=== PATIENT | female | born 1985 | race Caucasian/White ===

== ENCOUNTER 2017-02-02 17:42 | Emergency (ER) | payer BC, OTHER ==
[2017-02-02 18:08] VITALS: BP 134/55
[2017-02-02] MEDS ORDERED: Ondansetron 4 MG/2 ML SDV IVPUSH ONE (18:39)
[2017-02-02] MEDS ORDERED: HYDROmorphone 1 MG/ML Syringe IVPUSH ONE (18:39)
--- NOTE | 2017-02-02 18:50 | EDM.PDOC ---
ED HPI GI/ABDOMINAL - General Chief Complaint: Abdominal Pain Stated Complaint: ABDOMINAL PAIN Time Seen by Provider: 02/02/17 18:00 Source of Information: Reports: Patient History Limitations: Reports: No limitations - History of Present Illness INITIAL COMMENTS - FREE TEXT/NARRATIVE: 31-year-old female presents emergency room with severe abdominal pain. Patient had a episode of vomiting last evening after eating and she felt a tearing in her right mid abdomen. Since then she's felt a fullness and severe pain and discomfort over the right abdomen. She has pain with any movement. She's noticed sudden nausea today but has not had a reoccurrence of vomiting. She was recently seen in [place] on November 30 for small bowel obstruction. She is recently status post gastric bypass which she had done in [facility] on December 19, 2016. She reports 30 pound weight loss. She was [id number] diabetic and on that form in his currently off her diabetes medication. He had a bowel movement yesterday. She's concerned that she may have incarcerated hernia because she's noticed increased fullness and tenderness over the area of where her portal was from surgery on the right midabdomen. She denies any fever or chills. He denies shortness of breath or chest pain. Denies any pain or bleeding with urination. She feels her pain is a 6/10. It is not improving. Timing/Duration: Reports: Hour(s):, Constant Location: RLQ Quality: Reports: fullness, stabbing Severity: moderate Improves with: Reports: other (lying in a position) Worsens with: Reports: sitting up, other (and walking) Context: Reports: recent surgery (*gastric bypass surgery in [facility]) Associated Symptoms (-Female): Reports: loss of appetite, nausea/vomiting. 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: Other (see below) Other OB/BYN History: 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 Endocrine/Metabolic History: Reports: Diabetes, type II, Obesity/BMI 30+ - Infectious Disease History Infectious Disease History: Reports: Chicken pox - Past Surgical History HEENT Surgical History: Reports: Tonsillectomy GI Surgical History: Reports: Bariatric procedure, Cholecystectomy, Colonoscopy , Other (see below) Other GI Surgeries/Procedures: laparotomy Female Surgical History: Reports: section Social & Family History - Family History Cardiac: Reports: Hypertension, Other (see below) Other Cardiac Family History: Dad from cardiac arrest at age 61 Endocrine/Metabolic: Reports: Diabetes, type II - Tobacco Use Smoking Status *Q: Former Smoker Used Tobacco, but Quit: Yes Month Tobacco Last Used: January Second Hand Smoke Exposure: No - Caffeine Use Caffeine Use: Reports: None - Alcohol Use Days Per Week of Alcohol Use: 1 Number of Drinks Per Day: 6 Total Drinks Per Week: 6 - Recreational Drug Use Recreational Drug Use: No ED ROS GENERAL - Review of Systems Review Of Systems: See Below Constitutional: Denies: fever, chills, diaphoresis HEENT: Reports: No symptoms Respiratory: Reports: No Symptoms Cardiovascular: Reports: No symptoms Endocrine: Reports: high glucose GI/Abdominal: Reports: Abdominal pain, Anorexia, Decreased appetite, Distension , Flatus, Nausea, Vomiting. Denies: Bloody stool, Constipation, Diarrhea, Hematemesis : Denies: dysuria, flank pain Musculoskeletal: Denies: neck pain, shoulder pain, back pain Skin: Denies: diaphoresis, bruising Neurological: Reports: No Symptoms Psychiatric: Reports: No symptoms Hematologic/Lymphatic: Reports: no symptoms Immunologic: Reports: no symptoms ED EXAM, GI/ABD - Physical Exam Exam: See Below Exam Limited By: No limitations General Appearance: alert, WD/WN, mild distress Nose: normal inspection, no blood Throat/Mouth: Normal voice, No airway compromise Head: atraumatic, normocephalic Neck: normal inspection Respiratory/Chest: no respiratory distress, lungs clear, normal breath sounds Cardiovascular: normal peripheral pulses, regular rate, rhythm, no murmur GI/Abdominal: tenderness, guarding, mass (fullness over the right abdominal portal site. As his area of tenderness.) Back Exam: normal inspection, full range of motion. No: CVA tenderness (L), CVA tenderness (R) Extremities: normal inspection Neurological: alert, oriented, no motor/sensory deficits Psychiatric: normal affect, normal mood Skin Exam: Warm, Dry, Intact, Normal color, No rash Lymphatic: no adenopathy Course - Vital Signs Last Recorded V/S: Last Vital Signs Temp 99.9 F 02/02/17 18:04 Pulse 85 02/02/17 18:04 Resp 20 02/02/17 18:04 BP 134/55 L 02/02/17 18:04 Pulse Ox 96 02/02/17 18:04 - Orders/Labs/Meds Orders: Active Orders 24 hr Category Date Time Status Abdomen Pelvis w Cont [CT] Stat Exams 02/02/17 18:35 Taken Sodium Chloride 0.9% [Normal Saline] Med 02/02/17 19:45 Active 50 ml FLUSH ASDIRECTED Sodium Chloride 0.9% [Normal Saline] 1,000 ml Med 02/02/17 19:30 Active IV .BOLUS Medication Orders Sodium Chloride (Normal Saline) 1,000 mls @ 999 mls/hr IV .BOLUS ONE Stop: 02/02/17 20:30 Last Admin: 02/02/17 19:33 Dose: 999 mls/hr Sodium Chloride (Normal Saline) 50 ml FLUSH ASDIRECTED [facility] Labs: Laboratory Tests 02/02/17 02/02/17 02/02/17 Range/Units 18:45 18:45 19:40 WBC 8.6 (5.0-10.0) 10^3/uL RBC 4.56 (3.80-5.50) 10^6/uL Hgb 13.0 (12.0-16.0) g/dL Hct 38.3 (37.0-47.0) % MCV 83.9 (82.0-92.0) fL MCH 28.5 (27.0-31.0) pg MCHC 34.0 (32.0-36.0) g/dL RDW 13.9 (11.5-14.5) % Plt Count 220 (150-300) 10^3/uL MPV 9.2 (7.4-10.4) fL Neut % (Auto) 80.0 H (50.0-70.0) % Lymph % (Auto) 13.4 L (20.0-40.0) % [place] % (Auto) 4.5 (2.0-8.0) % Eos % (Auto) 2.0 (1.0-3.0) % Baso % (Auto) 0.1 (0.0-1.0) % Neut # (Auto) 6.8 (2.5-7.0) 10^3/uL Lymph # (Auto) 1.2 (1.0-4.0) 10^3/uL [place] # (Auto) 0.4 (0.1-0.8) 10^3/uL Eos # (Auto) 0.2 (0.1-0.3) 10^3/uL Baso # (Auto) 0.0 (0.0-0.1) 10^3/uL Sodium 139 (136-145) mmol/L Potassium 3.8 (3.3-5.3) mmol/L Chloride 104 (98-115) mmol/L Carbon Dioxide 26.6 (21.0-32.0) mmol/L BUN 8 (6-25) mg/dL Creatinine 0.68 (0.51-1.17) mg/dL Est Cr Clr Drug Dosing 96.55 mL/min Estimated GFR (MDRD) > 60 mL/min Glucose 97 (70-110) mg/dL Calcium 8.9 (8.7-10.3) mg/dL AST 18 (15-37) U/L ALT 23 (12-78) U/L Amylase 38 (25-125) U/L Lipase 80 (73-393) U/L Specimen Type Urincc Urine Color Dark yellow H (YELLOW) Urine Appearance Clear (CLEAR) Urine pH 5.5 (5.0-9.0) Ur Specific [place] >= 1.030 (1.005-1.030) Urine Protein Trace H (NEGATIVE) mg/dL Urine Glucose (UA) Negative (NEGATIVE) mg/dL Urine Ketones Trace H (NEGATIVE) mg/dL Urine Occult Blood Negative (NEGATIVE) Urine Nitrite Negative (NEGATIVE) Urine Bilirubin Small H (NEGATIVE) Urine Urobilinogen 1.0 (0.2-1.0) E.U./dL Ur Leukocyte Esterase Negative (NEGATIVE) Urine RBC Not seen /HPF Urine WBC 0-5 /HPF Ur Epithelial Cells Moderate H /LPF Other Crystals Many /HPF Urine Bacteria Rare (NONE TO FEW) /HPF Urine Mucus Few H (NEGATIVE) /LPF Meds: Medications Generic Name Dose Route Start Last Admin Trade Name Neel PRN Reason Stop Dose Admin Sodium Chloride 1,000 mls @ 999 mls/hr 02/02/17 19:30 02/02/17 19:33 Normal Saline IV 02/02/17 20:30 999 mls/hr .BOLUS ONE Administration Sodium Chloride 50 ml 02/02/17 19:45 Normal Saline FLUSH ASDIRECTED TRAVON Discontinued Medications Generic Name Dose Route Start Last Admin Trade Name Neel PRN Reason Stop Dose Admin Hydromorphone HCl 1 mg 02/02/17 18:39 02/02/17 18:50 Dilaudid IVPUSH 02/02/17 18:40 1 mg ONETIME ONE Administration Iopamidol 75 ml 02/02/17 19:36 Isovue-300 (61%) IV 02/02/17 19:37 ONETIME ONE Ondansetron HCl 4 mg 02/02/17 18:39 02/02/17 18:50 Zofran IVPUSH 02/02/17 18:40 4 mg ONETIME ONE Administration Departure - Departure Time of Disposition: 20:19 Disposition: Still A Patient 30 Condition: good Clinical Impression: Abdominal pain Qualifiers: Abdominal location: right lower quadrant Qualified Code(s): R10.31 - Right lower quadrant pain Forms: ED Department Discharge - My Orders Last 24 Hours: My Active Orders 02/02/17 18:35 Abdomen Pelvis w Cont [CT] Stat 02/02/17 19:30 Sodium Chloride 0.9% [Normal Saline] 1,000 ml IV .BOLUS 02/02/17 19:45 Sodium Chloride 0.9% [Normal Saline] 50 ml FLUSH ASDIRECTED - Assessment/Plan Last 24 Hours: My Active Orders 02/02/17 18:35 Abdomen Pelvis w Cont [CT] Stat 02/02/17 19:30 Sodium Chloride 0.9% [Normal Saline] 1,000 ml IV .BOLUS 02/02/17 19:45 Sodium Chloride 0.9% [Normal Saline] 50 ml FLUSH ASDIRECTED
[2017-02-02] MEDS ORDERED: Sodium Chloride 0.9% 1,000 ML IV ONE (19:30)
[2017-02-02] MEDS ORDERED: Iopamidol 612 MG/ML 75 ML Bottle IV ONE (19:36)
[2017-02-02 19:40] LABS: CHLORIDE,CL 104 mmol/L (98-115); SODIUM,NA 139 mmol/L (136-145)
[2017-02-02] MEDS ORDERED: Sodium Chloride 0.9% 50 ML SDV FLUSH SCH (19:45)
[2017-02-03] MEDS ORDERED: Sodium Chloride 0.9% 50 ML SDV FLUSH ONE (13:13)
== END 2017-02-02 21:10 | disposition home or self-care (01) ==
LOC: KA.ED 17:42
DX: R10.31 Right lower quadrant pain (principal); E66.9 Obesity, unspecified; E11.9 Type 2 diabetes mellitus without complications; Z87.891 Personal history of nicotine dependence
CPT/HCPCS: 74177; 80048; 81001; 82150; 83690; 84450; 84460; 85025; 96361; 96374; 96375; 99284; J1170; J2405; J7030; Q9967

== ENCOUNTER 2017-07-22 05:20 | Emergency (ER) | payer BC, OTHER ==
[2017-07-22] MEDS ORDERED: HYDROmorphone 1 MG/ML Syringe IVPUSH ONE (05:30)
[2017-07-22 05:58] VITALS: BP 127/74
--- NOTE | 2017-07-22 06:19 | EDM.PDOC ---
ED HPI GENERAL MEDICAL PROBLEM - General Chief Complaint: Abdominal Pain Stated Complaint: abd pain Time Seen by Provider: 07/22/17 05:58 Source of Information: Reports: Patient History Limitations: Reports: No Limitations - History of Present Illness INITIAL COMMENTS - FREE TEXT/NARRATIVE: Patient presents with abdominal pain 8-910 that started at 0200, an hour after eating two pieces of toast and popcorn when she got home from work. She tried to make herself vomit thinking the food was stuck; she had a gastric bypass 7 months ago. The pain let up somewhat for awhile and then returned at 0400. She denies N/V, diarrhea or constipation. Last bowel movement was just a couple hours ago and she has been passing gas currently. One month after her gastric bypass she did have a small bowel obstruction that resolved itself after a couple days in the hospital. She has had abdominal hernias repaired 2 months ago and a lap maximilian two years ago. Left Middle Abdominal Pain Score (Numeric/FACES): 10 - Related Data Allergies Allergy/AdvReac Type Severity Reaction Status Date / Time amoxicillin Allergy Hives Verified 07/22/17 05:59 Home Meds: Home Meds ALPRAZolam [Xanax] 1 mg PO Q6H PRN 11/02/15 [History] Multivitamin with Minerals [One Daily Plus Minerals] 1 each PO DAILY 11/02/15 [ History] Albuterol [IJD: Albuterol HFA] 2 puff INH Q4HR PRN 07/22/17 [History] Past Medical History Gastrointestinal History: Reports: Cholelithiasis Genitourinary History: Reports: Renal Calculus, Other (See Below) Other Genitourinary History: bacterial vaginosis 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) Other OB/BYN History: 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 Endocrine/Metabolic History: Reports: Diabetes, Type II, Obesity/BMI 30+ - Infectious Disease History Infectious Disease History: Reports: Chicken Pox - Past Surgical History GI Surgical History: Reports: Bariatric Procedure, Cholecystectomy, Colonoscopy , Other (See Below) Female Surgical History: Reports: Section Social & Family History - Family History Cardiac: Reports: Hypertension, Other (See Below) Other Cardiac Family History: Dad from cardiac arrest at age 61 Endocrine/Metabolic: Reports: Diabetes, type II - Tobacco Use Smoking Status *Q: Former Smoker Used Tobacco, but Quit: Yes Month Tobacco Last Used: January Second Hand Smoke Exposure: No - Caffeine Use Caffeine Use: Reports: None - Alcohol Use Days Per Week of Alcohol Use: 1 Number of Drinks Per Day: 6 Total Drinks Per Week: 6 - Recreational Drug Use Recreational Drug Use: No ED ROS GENERAL - Review of Systems Review Of Systems: See Below Constitutional: Denies: Fever, Chills, Weakness, Decreased Appetite HEENT: Denies: Throat Pain, Vision Change Respiratory: Denies: Shortness of Breath, Cough Cardiovascular: Denies: Chest Pain, Lightheadedness, Syncope GI/Abdominal: Reports: Abdominal Pain. Denies: Black Stool, Bloody Stool, Nausea, Stool Incontinence, Vomiting : Denies: Dysuria, Flank Pain Musculoskeletal: Reports: No Symptoms Skin: Denies: Cyanosis, Jaundice, Mottled, Pallor, Diaphoresis Neurological: Denies: Confusion, Dizziness, Headache, Seizure, Syncope Psychiatric: Denies: Agitation, Anxiety, Confusion ED EXAM, GI/ABD - Physical Exam Exam: See Below Exam Limited By: No Limitations General Appearance: Alert, WD/WN, No Apparent Distress Eyes: Bilateral: Normal Appearance, EOMI Ears: Normal External Exam, Hearing Grossly Normal Nose: Normal Inspection, No Blood Throat/Mouth: Normal Inspection, Normal Lips, Normal Voice, No Airway Compromise Head: Atraumatic, Normocephalic Neck: Normal Inspection, Full Range of Motion Respiratory/Chest: No Respiratory Distress, Lungs Clear, Normal Breath Sounds, No Accessory Muscle Use Cardiovascular: Regular Rate, Rhythm, No Murmur GI/Abdominal Exam: Normal Bowel Sounds, No Distention, No Abnormal Bruit, Guarding (mild voluntary that she can avoid on demand; there is a moderate firmness in mid-epigastrium which is also the tender region and she doesn't relax as easily when palpating this area so may be some guarding. Well healing but fairly recent mid-abdominal incisions that are palpable consistent with scar tissue.) Back Exam: Full Range of Motion. No: CVA Tenderness (L), CVA Tenderness (R) Extremities: Normal Inspection, Normal Range of Motion, Non-Tender, No Pedal Edema Neurological: Alert, Oriented, Normal Cognition, No Motor/Sensory Deficits Psychiatric: Normal Affect, Normal Mood Skin Exam: Warm, Dry, Intact, Normal Color, No Rash Course - Vital Signs Last Recorded V/S: Last Vital Signs Temp 97.8 F 07/22/17 05:53 Pulse 78 07/22/17 05:53 Resp 18 07/22/17 05:53 BP 127/74 07/22/17 05:53 Pulse Ox 100 07/22/17 05:53 - Orders/Labs/Meds Orders: Active Orders 24 hr Category Date Time Status CBC WITH AUTO DIFF [HEME] Stat Lab 07/22/17 06:02 Ordered COMPREHENSIVE METABOLIC PN,CMP [CHEM] Stat Lab 07/22/17 06:02 Ordered LIPASE [CHEM] Stat Lab 07/22/17 06:02 Ordered Meds: Medications Discontinued Medications Generic Name Dose Route Start Last Admin Trade Name Freq PRN Reason Stop Dose Admin Hydromorphone HCl 1 mg 07/22/17 05:30 Dilaudid IVPUSH 07/22/17 05:31 ONETIME ONE - Re-Assessments/Exams Free Text/Narrative Re-Assessment/Exam: 07/22/17 06:27 Pain is down to 3/10 after Dilaudid. Pt denies chance of : on control, vasectomy. 07/22/17 07:23 CT of abdomen/pelvis shows a moderate amount of stool through the colon but no obstruction or mucosal thickening. A small hiatal hernia. Pt tells me that when her gastric bypass was done in [place] they also fixed a hiatal hernia so was unaware of any currently. Her pain is completely gone now. We discussed findings and recommendations and discharged in stable condition. Departure - Departure Time of Disposition: 07:26 Disposition: Home, Self-Care 01 Condition: Good Clinical Impression: Midepigastric pain - Discharge Information Additional Instructions: 1. Discuss the hiatal hernia and ER visit with your PCP to see if she wants any GI consult or evaluation. - My Orders Last 24 Hours: My Active Orders 07/22/17 06:02 CBC WITH AUTO DIFF [HEME] Stat COMPREHENSIVE METABOLIC PN,CMP [CHEM] Stat LIPASE [CHEM] Stat - Assessment/Plan Last 24 Hours: My Active Orders 07/22/17 06:02 CBC WITH AUTO DIFF [HEME] Stat COMPREHENSIVE METABOLIC PN,CMP [CHEM] Stat LIPASE [CHEM] Stat
[2017-07-22 06:30] LABS: CHLORIDE,CL 108 mmol/L (98-115); SODIUM,NA 143 mmol/L (136-145)
[2017-07-22] MEDS ORDERED: Iopamidol 612 MG/ML 75 ML Bottle IV ONE (06:51)
[2017-07-22] MEDS ORDERED: Sodium Chloride 0.9% 50 ML SDV FLUSH SCH (07:00)
== END 2017-07-22 08:00 | disposition home or self-care (01) ==
LOC: KA.ED 05:20
DX: R10.13 Epigastric pain (principal); E11.9 Type 2 diabetes mellitus without complications; E66.9 Obesity, unspecified; Z87.891 Personal history of nicotine dependence; Z88.1 Allergy status to other antibiotic agents
CPT/HCPCS: 74177; 80053; 81001; 83690; 85025; 96374; 99284; J1170; Q9967

== ENCOUNTER 2018-02-18 14:22 | Emergency (ER) | payer OTHER ==
[2018-02-18 14:43] VITALS: BP 140/67
[2018-02-18 15:14] LABS: CHLORIDE,CL 107 mmol/L (98-115); SODIUM,NA 141 mmol/L (136-145)
--- NOTE | 2018-02-18 16:31 | EDM.PDOC ---
ED HPI GENERAL MEDICAL PROBLEM - General Chief Complaint: General Stated Complaint: UTI PAIN Time Seen by Provider: 02/18/18 15:12 Source of Information: Reports: Patient History Limitations: Reports: No Limitations - History of Present Illness INITIAL COMMENTS - FREE TEXT/NARRATIVE: Patient is a 32-year-old female who presents to the emergency department this afternoon with a complaint of dysuria and left flank pain. Patient states that symptoms began 6 days ago and she was seen at a clinic in [place]. Patient was diagnosed with UTI and given shot of Rocephin and a prescription of Bactrim. Symptoms persisted and on friday she was seen at [place] ER. At that time she was given another shot of Rocephin and put on prescription of ciprofloxacin. Symptoms subsided for 1 day and began again this morning. Dysuria and left flank pain persists. Patient denies fever, nausea, vomiting, chest pain, shortness of breath, vaginal discharge, or vaginal bleeding. 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 (see below) Other Treatments ADOLESCENT COUNSELOR: antibiotics Left Posterior Flank Pain Score (Numeric/FACES): 8 - Related Data Allergies Allergy/AdvReac Type Severity Reaction Status Date / Time amoxicillin Allergy Hives Verified 02/18/18 14:44 Home Meds: Home Meds ALPRAZolam [Xanax] 1 mg PO Q6H PRN 11/02/15 [History] Multivitamin with Minerals [One Daily Plus Minerals] 1 each PO DAILY 11/02/15 [ History] Albuterol [IJD: Albuterol HFA] 2 puff INH Q4HR PRN 07/22/17 [History] Ciprofloxacin HCl [Cipro] 500 mg PO BID 02/18/18 [History] Phenazopyridine HCl [Pyridium] 200 mg PO TID #6 tablet 02/18/18 [Rx] Past Medical History Gastrointestinal History: Reports: Cholelithiasis Other Gastrointestinal History: recent bariatric procedure November 2016, bowel obstruction in december 2016 Genitourinary History: Reports: Renal Calculus, Other (See Below) Other Genitourinary History: bacterial vaginosis 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) Other OB/BYN History: 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 Psychiatric History: Reports: Anxiety Endocrine/Metabolic History: Reports: Diabetes, Type II, Obesity/BMI 30+ - Infectious Disease History Infectious Disease History: Reports: Chicken Pox - Past Surgical History HEENT Surgical History: Reports: Tonsillectomy GI Surgical History: Reports: Bariatric Procedure, Cholecystectomy, Colonoscopy , Other (See Below) Female Surgical History: Reports: Section Social & Family History - Family History Cardiac: Reports: Hypertension, Other (See Below) Other Cardiac Family History: Dad from cardiac arrest at age 61 Endocrine/Metabolic: Reports: Diabetes, type II - Tobacco Use Smoking Status *Q: Never Smoker Second Hand Smoke Exposure: No - Caffeine Use Caffeine Use: Reports: Soda, Tea - Alcohol Use Days Per Week of Alcohol Use: 2 Number of Drinks Per Day: 3 Total Drinks Per Week: 6 - Recreational Drug Use Recreational Drug Use: No ED ROS GENERAL - Review of Systems Review Of Systems: ROS reveals no pertinent complaints other than HPI. Constitutional: Reports: No Symptoms HEENT: Reports: No Symptoms Respiratory: Reports: No Symptoms Cardiovascular: Reports: No Symptoms Endocrine: Reports: No Symptoms GI/Abdominal: Reports: Abdominal Pain (Suprapubic), Diarrhea : Reports: Dysuria, Flank Pain (Left). Denies: Discharge Musculoskeletal: Reports: No Symptoms Skin: Reports: No Symptoms Neurological: Reports: No Symptoms Psychiatric: Reports: No Symptoms Hematologic/Lymphatic: Reports: No Symptoms Immunologic: Reports: No Symptoms ED EXAM, GENERAL - Physical Exam Exam: See Below Exam Limited By: No Limitations General Appearance: Alert, WD/WN, No Apparent Distress Throat/Mouth: Normal Inspection, Normal Oropharynx, No Airway Compromise Head: Atraumatic, Normocephalic Neck: Normal Inspection, Supple Respiratory/Chest: No Respiratory Distress, Lungs Clear, Normal Breath Sounds, No Accessory Muscle Use, Chest Non-Tender Cardiovascular: Regular Rate, Rhythm, No Murmur GI/Abdominal: Normal Bowel Sounds, Soft, Tender (Minimally suprapubic) Back Exam: CVA Tenderness (L). No: CVA Tenderness (R) Extremities: Normal Inspection, Non-Tender, No Pedal Edema Neurological: Alert, Oriented, Normal Cognition Psychiatric: Normal Affect, Normal Mood Skin Exam: Warm, Dry, Intact, Normal Color, No Rash Lymphatic: No Adenopathy Course - Vital Signs Last Recorded V/S: Last Vital Signs Temp 98.0 F 02/18/18 14:36 Pulse 114 H 02/18/18 14:36 Resp 22 H 02/18/18 14:36 BP 140/67 02/18/18 14:36 Pulse Ox 100 02/18/18 14:36 - Orders/Labs/Meds Orders: Active Orders 24 hr Category Date Time Status Abdomen Pelvis wo Cont [CT] Stat Exams 02/18/18 14:51 Taken COMPREHENSIVE METABOLIC PN,CMP [CHEM] Stat Lab 02/18/18 14:45 Received CULTURE URINE [RM] Stat Lab 02/18/18 15:12 Ordered HCG QUALITATIVE,URINE [URCHEM] Stat Lab 02/18/18 14:40 Ordered UA W/MICROSCOPIC [URIN] Stat Lab 02/18/18 14:40 Ordered Labs: Laboratory Tests 02/18/18 02/18/18 02/18/18 Range/Units 14:40 14:40 14:45 WBC 7.2 (5.0-10.0) 10^3/uL RBC 4.42 (3.80-5.50) 10^6/uL Hgb 13.4 (12.0-16.0) g/dL Hct 39.5 (37.0-47.0) % MCV 89.3 (82.0-92.0) fL MCH 30.2 (27.0-31.0) pg MCHC 33.9 (32.0-36.0) g/dL RDW 12.6 (11.5-14.5) % Plt Count 276 (150-300) 10^3/uL MPV 7.6 (7.4-10.4) fL Neut % (Auto) 63.7 (50.0-70.0) % Lymph % (Auto) 28.7 (20.0-40.0) % [place] % (Auto) 5.9 (2.0-8.0) % Eos % (Auto) 1.0 (1.0-3.0) % Baso % (Auto) 0.7 (0.0-1.0) % Neut # (Auto) 4.5 (2.5-7.0) 10^3/uL Lymph # (Auto) 2.1 (1.0-4.0) 10^3/uL [place] # (Auto) 0.4 (0.1-0.8) 10^3/uL Eos # (Auto) 0.1 (0.1-0.3) 10^3/uL Baso # (Auto) 0.1 (0.0-0.1) 10^3/uL Specimen Type Urincc Urine Color Yellow (YELLOW) Urine Appearance Slightly cloudy H (CLEAR) Urine pH 5.0 (5.0-9.0) Ur Specific [place] >= 1.030 (1.005-1.030) Urine Protein Negative (NEGATIVE) mg/dL Urine Glucose (UA) Negative (NEGATIVE) mg/dL Urine Ketones Negative (NEGATIVE) mg/dL Urine Occult Blood Negative (NEGATIVE) Urine Nitrite Negative (NEGATIVE) Urine Bilirubin Negative (NEGATIVE) Urine Urobilinogen 0.2 (0.2-1.0) E.U./dL Ur Leukocyte Esterase Negative (NEGATIVE) Urine RBC 0-5 /HPF Urine WBC 0-5 /HPF Ur Epithelial Cells Moderate H /LPF Urine Bacteria Few (NONE TO FEW) /HPF Urine HCG, Qual Negative (NEGATIVE) - Radiology Interpretation Free Text/Narrative:: CT abdomen and pelvis without contrast shows no acute process - Re-Assessments/Exams Free Text/Narrative Re-Assessment/Exam: 02/18/18 16:57 Patient afebrile, nontoxic appearing, vital signs stable. Pyridium prescribed. Patient will follow-up with urology in [place]. Departure - Departure Time of Disposition: 16:57 Disposition: Home, Self-Care 01 Condition: Good Clinical Impression: Dysuria - Discharge Information Instructions: Dysuria Referrals: Heidi Diop [employer]ER [Primary Care Provider] - - My Orders Last 24 Hours: My Active Orders 02/18/18 14:40 HCG QUALITATIVE,URINE [URCHEM] Stat UA W/MICROSCOPIC [URIN] Stat 02/18/18 14:45 COMPREHENSIVE METABOLIC PN,CMP [CHEM] Stat 02/18/18 14:51 Abdomen Pelvis wo Cont [CT] Stat 02/18/18 15:12 CULTURE URINE [RM] Stat - Assessment/Plan Last 24 Hours: My Active Orders 02/18/18 14:40 HCG QUALITATIVE,URINE [URCHEM] Stat UA W/MICROSCOPIC [URIN] Stat 02/18/18 14:45 COMPREHENSIVE METABOLIC PN,CMP [CHEM] Stat 02/18/18 14:51 Abdomen Pelvis wo Cont [CT] Stat 02/18/18 15:12 CULTURE URINE [RM] Stat Assessment:: Dysuria Plan: Follow-up with urologist in [place].
== END 2018-02-18 17:05 | disposition home or self-care (01) ==
LOC: KA.ED 14:22
DX: R30.0 Dysuria (principal); E11.9 Type 2 diabetes mellitus without complications; E66.9 Obesity, unspecified; Z88.1 Allergy status to other antibiotic agents; Z79.899 Other long term (current) drug therapy
CPT/HCPCS: 36415; 74176; 80053; 81001; 81025; 85025; 87086; 99284

== ENCOUNTER 2019-06-01 17:47 | Emergency (ER) | payer OTHER ==
[2019-06-01 18:29] VITALS: BP 90/65
[2019-06-01 18:40] LABS: CHLORIDE,CL 104 mmol/L (98-115); SODIUM,NA 140 mmol/L (136-145)
--- NOTE | 2019-06-01 18:41 | EDM.PDOC ---
ED HPI GENERAL MEDICAL PROBLEM - General Chief Complaint: Chest Pain Stated Complaint: CHEST PAINS Time Seen by Provider: 06/01/19 18:30 Source of Information: Reports: Patient History Limitations: Reports: No Limitations - History of Present Illness INITIAL COMMENTS - FREE TEXT/NARRATIVE: Patient is a 33-year-old female who presents to the emergency department this evening with a complaint of chest pain. Patient states the chest pain developed early this afternoon, so she decided to present to the [facility]. An EKG was done there by the nurse, shown to the patient where she took a picture on her phone, and nurse told her that she should go to the ER for tachycardia. A provider was not notified nor did the provider at the [facility] see the patient. Patient decided to go home and take a Xanax. However, symptoms did not subside so she decided to present to the ER. Upon presentation to the ER, patient appears in no distress. Patient states that chest pain is described as pressure in the middle of her chest and she has difficulty taking deep breaths. Patient states she's had similar episodes previously. She does have a strong history of anxiety. However, the chest pain seems worse this time. Vital signs are stable, initial EKG shows normal sinus rhythm, patient denies any lower extremity edema, chest trauma, fever, nausea, vomiting, diarrhea, out of country travel, sitting in same position for long period of time, or upper respiratory symptoms. Onset: Today, Sudden Duration: Hour(s): Location: Reports: Chest Quality: Reports: Pressure Severity: Mild Improves with: Reports: Other (Spontaneously) Worsens with: Reports: None Context: Reports: Other (At rest) Associated Symptoms: Reports: Chest Pain, Shortness of Breath. Denies: Fever/ Chills, Headaches, Nausea/Vomiting Treatments [employer] FOUNDER: Reports: Other (see below) (Xanax) chest Pain Score (Numeric/FACES): 4 - Related Data Allergies Allergy/AdvReac Type Severity Reaction Status Date / Time amoxicillin Allergy Hives Verified 06/01/19 18:21 Home Meds: Home Meds ALPRAZolam [Xanax] 1 mg PO Q6H PRN 11/02/15 [History] Albuterol [IJD: Albuterol HFA] 2 puff INH Q4HR PRN 07/22/17 [History] Past Medical History Respiratory History: Reports: Asthma Gastrointestinal History: Reports: Cholelithiasis Other Gastrointestinal History: recent bariatric procedure November 2016, bowel obstruction in december 2016 Genitourinary History: Reports: Renal Calculus, Other (See Below) Other Genitourinary History: bacterial vaginosis RESIDENT SURGEON History: Reports: Other (See Below) Other RESIDENT SURGEON History: 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 Psychiatric History: Reports: Anxiety Endocrine/Metabolic History: Reports: Diabetes, Type II - Infectious Disease History Infectious Disease History: Reports: Chicken Pox - Past Surgical History HEENT Surgical History: Reports: Tonsillectomy GI Surgical History: Reports: Bariatric Procedure, Cholecystectomy, Colonoscopy Female Surgical History: Reports: Section Social & Family History - Family History Cardiac: Reports: Hypertension, Other (See Below) Other Cardiac Family History: Dad from cardiac arrest at age 61 Endocrine/Metabolic: Reports: Diabetes, type II - Tobacco Use Smoking Status *Q: Never Smoker Second Hand Smoke Exposure: No - Caffeine Use Caffeine Use: Reports: None - Recreational Drug Use Recreational Drug Type: Reports: Xanax ED ROS GENERAL - Review of Systems Review Of Systems: ROS reveals no pertinent complaints other than HPI. Constitutional: Reports: No Symptoms HEENT: Reports: No Symptoms Respiratory: Reports: Shortness of Breath Cardiovascular: Reports: Chest Pain Endocrine: Reports: No Symptoms GI/Abdominal: Reports: No Symptoms : Reports: No Symptoms Musculoskeletal: Reports: No Symptoms Skin: Reports: No Symptoms Neurological: Reports: No Symptoms Psychiatric: Reports: No Symptoms Hematologic/Lymphatic: Reports: No Symptoms Immunologic: Reports: No Symptoms ED EXAM, GENERAL - Physical Exam Exam: See Below Exam Limited By: No Limitations General Appearance: Alert, WD/WN, No Apparent Distress Nose: Normal Inspection, No Blood Throat/Mouth: Normal Inspection, Normal Oropharynx, No Airway Compromise Head: Atraumatic, Normocephalic Neck: Normal Inspection Respiratory/Chest: No Respiratory Distress, Lungs Clear, Normal Breath Sounds, No Accessory Muscle Use, Chest Non-Tender Cardiovascular: Regular Rate, Rhythm, No Murmur, No Rub GI/Abdominal: Normal Bowel Sounds, Soft, Non-Tender, No Organomegaly, No Distention, No Mass Back Exam: Normal Inspection. No: CVA Tenderness (L), CVA Tenderness (R) Extremities: Normal Inspection, No Pedal Edema, Normal Capillary Refill Neurological: Alert, Oriented, CN II-XII Intact, Normal Cognition, No Motor/ Sensory Deficits Psychiatric: Normal Affect, Normal Mood Skin Exam: Warm, Dry, Intact, Normal Color, No Rash Lymphatic: No Adenopathy EKG INTERPRETATION EKG Date: 06/01/19 Time: 17:55 Rhythm: NSR Rate (Beats/Min): 83 [place]: Normal P-Wave: Present QRS: Normal ST-T: Normal QT: Normal Comparison: NA - No Prior EKG Course - Vital Signs Last Recorded V/S: Last Vital Signs Temp 97.7 F 06/01/19 17:55 Pulse 85 06/01/19 18:28 Resp 14 06/01/19 18:28 BP 90/65 06/01/19 18:28 Pulse Ox 99 06/01/19 18:28 - Orders/Labs/Meds Orders: Active Orders 24 hr Category Date Time Status CXR [Chest 2V] [CR] Stat Exams 06/01/19 18:12 Ordered Labs: Laboratory Tests 06/01/19 06/01/19 06/01/19 Range/Units 18:00 18:00 18:00 WBC 8.84 (5.00-10.00) 10^3/uL RBC 4.45 (3.80-5.50) 10^6/uL Hgb 12.9 (12.0-16.0) g/dL Hct 39.3 (37.0-47.0) % MCV 88.3 (82.0-92.0) fL MCH 29.0 (27.0-31.0) pg MCHC 32.8 (32.0-36.0) g/dL RDW 13.8 (11.5-14.5) % Plt Count 281 (150-400) 10^3/uL MPV 9.8 (7.4-10.4) fL Immature Gran % (Auto) 0.1 (0.0-5.0) % Neut % (Auto) 57.5 (50.0-70.0) % Lymph % (Auto) 33.5 (20.0-40.0) % [place] % (Auto) 7.5 (2.0-8.0) % Eos % (Auto) 1.2 (1.0-3.0) % Baso % (Auto) 0.2 (0.0-1.0) % Immature Gran # (Auto) 0.01 (0.00-0.50) 10^3/uL Neut # (Auto) 5.08 (2.50-7.00) 10^3/uL Lymph # (Auto) 2.96 (1.00-4.00) 10^3/uL [place] # (Auto) 0.66 (0.10-0.80) 10^3/uL Eos # (Auto) 0.11 (0.10-0.30) 10^3/uL Baso # (Auto) 0.02 (0.00-0.10) 10^3/uL D-Dimer, Quantitative < 100 (<400) ng/mL Sodium 140 (136-145) mmol/L Potassium 4.2 (3.3-5.3) mmol/L Chloride 104 (98-115) mmol/L Carbon Dioxide 26.2 (21.0-32.0) mmol/L Anion Gap 14.0 (5-15) mmol/L BUN 12 (6-25) mg/dL Creatinine 0.72 (0.51-1.17) mg/dL Est Cr Clr Drug Dosing 89.54 mL/min Estimated GFR (MDRD) > 60 mL/min Glucose 82 (75 - 99) mg/dL Calcium 9.0 (8.7-10.3) mg/dL Total Bilirubin 0.3 (0.2-1.0) mg/dL AST 25 (15-37) U/L ALT 33 (12-78) U/L Alkaline Phosphatase 86 (46-116) IU/L Troponin I (0.00-0.070) ng/mL Total Protein 7.5 (6.4-8.2) g/dL Albumin 3.76 (3.00-4.80) g/dL HCG, Qual Negative (NEGATIVE) 06/01/19 Range/Units 18:00 WBC (5.00-10.00) 10^3/uL RBC (3.80-5.50) 10^6/uL Hgb (12.0-16.0) g/dL Hct (37.0-47.0) % MCV (82.0-92.0) fL MCH (27.0-31.0) pg MCHC (32.0-36.0) g/dL RDW (11.5-14.5) % Plt Count (150-400) 10^3/uL MPV (7.4-10.4) fL Immature Gran % (Auto) (0.0-5.0) % Neut % (Auto) (50.0-70.0) % Lymph % (Auto) (20.0-40.0) % [place] % (Auto) (2.0-8.0) % Eos % (Auto) (1.0-3.0) % Baso % (Auto) (0.0-1.0) % Immature Gran # (Auto) (0.00-0.50) 10^3/uL Neut # (Auto) (2.50-7.00) 10^3/uL Lymph # (Auto) (1.00-4.00) 10^3/uL [place] # (Auto) (0.10-0.80) 10^3/uL Eos # (Auto) (0.10-0.30) 10^3/uL Baso # (Auto) (0.00-0.10) 10^3/uL D-Dimer, Quantitative (<400) ng/mL Sodium (136-145) mmol/L Potassium (3.3-5.3) mmol/L Chloride (98-115) mmol/L Carbon Dioxide (21.0-32.0) mmol/L Anion Gap (5-15) mmol/L BUN (6-25) mg/dL Creatinine (0.51-1.17) mg/dL Est Cr Clr Drug Dosing mL/min Estimated GFR (MDRD) mL/min Glucose (75 - 99) mg/dL Calcium (8.7-10.3) mg/dL Total Bilirubin (0.2-1.0) mg/dL AST (15-37) U/L ALT (12-78) U/L Alkaline Phosphatase (46-116) IU/L Troponin I < 0.04 (0.00-0.070) ng/mL Total Protein (6.4-8.2) g/dL Albumin (3.00-4.80) g/dL HCG, Qual (NEGATIVE) - Radiology Interpretation Free Text/Narrative:: Chest x-ray shows no acute cardiopulmonary process - Re-Assessments/Exams Free Text/Narrative Re-Assessment/Exam: 06/01/19 18:56 Patient afebrile, nontoxic appearing, vital signs stable, chest pain has subsided. Patient will follow-up with PCP tomorrow. Return to emergency department if symptoms continue today. Departure - Departure Time of Disposition: 18:57 Disposition: Home, Self-Care 01 Condition: Good Clinical Impression: Acute nonspecific chest pain with low risk of coronary artery disease, Anxiety Instructions: Nonspecific Chest Pain, [id number], Generalized Anxiety Disorder, Adult Referrals: Heidi Diop PELLETIZER TENDER [Primary Care Provider] - Forms: ED Department Discharge Additional Instructions: Follow-up at [facility] tomorrow. Return to emergency department sooner if symptoms continue or worsen. Take Xanax as directed. - My Orders Last 24 Hours: My Active Orders 06/01/19 18:12 CXR [Chest 2V] [CR] Stat - Assessment/Plan Last 24 Hours: My Active Orders 06/01/19 18:12 CXR [Chest 2V] [CR] Stat Assessment:: Nonspecific chest pain, anxiety Plan: Follow-up with PCP
--- NOTE | 2019-06-01 19:05 | CR ---
[id number] RAD/RAD Chest PA And Lateral EXAM: RAD Chest PA And Lateral INDICATION: CHEST PAIN. COMPARISON: October 2015. DISCUSSION: Cardiomediastinal silhouette is normal in size and contour. No infiltrate, effusion, pneumothorax, or edema. IMPRESSION: Negative examination of the chest. Jeffery Baker MD 06/01/19 [id number] Thank you for allowing us to participate in the care of your patient.
== END 2019-06-01 19:06 | disposition home or self-care (01) ==
LOC: KA.ED 17:47
DX: F41.9 Anxiety disorder, unspecified (principal); I25.10 Atherosclerotic heart disease of native coronary artery without angina pectoris; J45.909 Unspecified asthma, uncomplicated; E11.9 Type 2 diabetes mellitus without complications; Z88.1 Allergy status to other antibiotic agents; Z79.899 Other long term (current) drug therapy
CPT/HCPCS: 71046; 80053; 84484; 84703; 85025; 85379; 93005; 99285-25

== ENCOUNTER 2019-10-02 19:33 | Emergency (ER) | payer OTHER ==
[2019-10-02] MEDS ORDERED: Sodium Chloride 0.9% 10 ML Syringe FLUSH PRN (19:47)
--- NOTE | 2019-10-02 19:47 | EDM.PDOC ---
ED HPI GENERAL MEDICAL PROBLEM - General Chief Complaint: General Stated Complaint: ALCOHOL WITHDRAW Time Seen by Provider: 10/02/19 19:40 Source of Information: Reports: Patient, Family History Limitations: Reports: No Limitations - History of Present Illness INITIAL COMMENTS - FREE TEXT/NARRATIVE: Ady Eduardo, 33-year-old female, is going through presumed alcohol withdrawal. She is presenting here this evening secondary of a tautness twitching to site of her face and neck which resolved in route to the facility. Her last drink was noon yesterday 01 October 2019. She is a 6 pack or greater up to 12-18 beers per day for nearly the half year. She was arrested for DUI the night of the , and released to the custody of her family. They traveled to [place] yesterday, [facility], for self admission for alcohol treatment, but changed her mind and as they got into [place]. She denies any suicidal, homicidal, or irrational thoughts. She denies taking any substances other than her prescription medications. The situation of facial and neck musculature has not recurred, and she is feeling somewhat better about that. Onset: Today Onset Date: 10/02/19 Duration: Hour(s): Location: Reports: Face, Neck Quality: Reports: Other Severity: Moderate Improves with: Reports: None Worsens with: Reports: None Context: Reports: Other Associated Symptoms: Reports: No Other Symptoms - Related Data Allergies Allergy/AdvReac Type Severity Reaction Status Date / Time amoxicillin Allergy Hives Verified 10/02/19 20:01 Home Meds: Home Meds ALPRAZolam [Xanax] 1 mg PO Q6H PRN 11/02/15 [History] Albuterol [IJD: Albuterol HFA] 2 puff INH Q4HR PRN 07/22/17 [History] Past Medical History Respiratory History: Reports: Asthma Gastrointestinal History: Reports: Cholelithiasis Other Gastrointestinal History: recent bariatric procedure November 2016, bowel obstruction in december 2016 Genitourinary History: Reports: Renal Calculus, Other (See Below) Other Genitourinary History: bacterial vaginosis 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: Reports: Other (See Below) Other 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: 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 Musculoskeletal History: Reports: None Psychiatric History: Reports: Anxiety Endocrine/Metabolic History: Reports: Diabetes, Type II, Obesity/BMI 30+ ( [place] bypass) Hematologic History: Reports: None - Infectious Disease History Infectious Disease History: Reports: Chicken Pox - Past Surgical History Head Surgeries/Procedures: Reports: None HEENT Surgical History: Reports: Tonsillectomy Cardiovascular Surgical History: Reports: None Respiratory Surgical History: Reports: None GI Surgical History: Reports: Bariatric Procedure, Cholecystectomy, Colonoscopy Female Surgical History: Reports: Section, Hysterectomy (August 2019) Social & Family History - Family History Family Medical History: Noncontributory Cardiac: Reports: Hypertension, Other (See Below) Other Cardiac Family History: Dad from cardiac arrest at age 61 Psychiatric: Reports: Anxiety, Other (See Below) (alcoholism) Endocrine/Metabolic: Reports: Diabetes, type II - Caffeine Use Caffeine Use: Reports: None ED ROS GENERAL - Review of Systems Review Of Systems: Comprehensive ROS is negative, except as noted in HPI. ED EXAM, GENERAL - Physical Exam Exam: See Below Exam Limited By: No Limitations General Appearance: Alert, WD/WN, No Apparent Distress Ears: Normal External Exam, Hearing Grossly Normal Nose: Normal Inspection, Normal Mucosa, No Blood Throat/Mouth: Normal Inspection, Normal Lips, Normal Teeth, Normal Gums, Normal Oropharynx, Normal Voice, No Airway Compromise Head: Atraumatic, Normocephalic Neck: Normal Inspection, Supple, Non-Tender, Full Range of Motion Respiratory/Chest: No Respiratory Distress, Lungs Clear, Normal Breath Sounds, No Accessory Muscle Use, Chest Non-Tender Cardiovascular: Normal Peripheral Pulses, Regular Rate, Rhythm, No Edema, No Gallop, No JVD, No Murmur, No Rub GI/Abdominal: Soft, Non-Tender (Female) Exam: Deferred Rectal (Female) Exam: Deferred Back Exam: Full Range of Motion Extremities: Normal Inspection, Normal Range of Motion, Non-Tender Neurological: Alert, Oriented, CN II-XII Intact, Normal Cognition, Normal Gait, Normal Reflexes, No Motor/Sensory Deficits Psychiatric: Normal Affect, Normal Mood Skin Exam: Warm, Dry, Intact, Normal Color, No Rash Lymphatic: No Adenopathy Course - Vital Signs Last Recorded V/S: Last Vital Signs Temp 36.6 C 10/02/19 20:02 Pulse 102 H 10/02/19 20:02 Resp 18 10/02/19 20:02 BP 144/89 H 10/02/19 20:02 Pulse Ox 100 10/02/19 20:02 - Orders/Labs/Meds Orders: Active Orders 24 hr Category Date Time Status Peripheral IV Care [RC] . DIRECTED Care 10/02/19 19:48 Active Chest 2V [CR] Stat Exams 10/02/19 19:52 Ordered Sodium Chloride 0.9% [Normal Saline] 1,000 ml Med 10/02/19 20:00 Active IV ASDIRECTED Sodium Chloride 0.9% [Saline Flush] Med 10/02/19 19:47 Active 10 ml FLUSH Q8HR PRN Peripheral IV Insertion Adult [OM.PC] Routine Oth 10/02/19 19:48 Ordered Medication Orders Sodium Chloride (Normal Saline) 1,000 mls @ 100 mls/hr IV ASDIRECTED TRAVON Last Admin: 10/02/19 20:28 Dose: 100 mls/hr Sodium Chloride (Saline Flush) 10 ml FLUSH Q8HR PRN PRN Reason: keep vein open Labs: Laboratory Tests 10/02/19 10/02/19 10/02/19 Range/Units 19:55 19:55 19:55 WBC 5.75 (5.00-10.00) 10^3/uL RBC 4.21 (3.80-5.50) 10^6/uL Hgb 11.5 L (12.0-16.0) g/dL Hct 36.3 L (37.0-47.0) % MCV 86.2 (82.0-92.0) fL MCH 27.3 (27.0-31.0) pg MCHC 31.7 L (32.0-36.0) g/dL RDW 14.6 H (11.5-14.5) % Plt Count 263 (150-400) 10^3/uL MPV 9.1 (7.4-10.4) fL Immature Gran % (Auto) 0.2 (0.0-5.0) % Neut % (Auto) 57.9 (50.0-70.0) % Lymph % (Auto) 33.0 (20.0-40.0) % [place] % (Auto) 7.5 (2.0-8.0) % Eos % (Auto) 1.2 (1.0-3.0) % Baso % (Auto) 0.2 (0.0-1.0) % Immature Gran # (Auto) 0.01 (0.00-0.50) 10^3/uL Neut # (Auto) 3.33 (2.50-7.00) 10^3/uL Lymph # (Auto) 1.90 (1.00-4.00) 10^3/uL [place] # (Auto) 0.43 (0.10-0.80) 10^3/uL Eos # (Auto) 0.07 L (0.10-0.30) 10^3/uL Baso # (Auto) 0.01 (0.00-0.10) 10^3/uL Sodium 139 (136-145) mmol/L Potassium 3.5 (3.3-5.3) mmol/L Chloride 100 (98-115) mmol/L Carbon Dioxide 23.3 (21.0-32.0) mmol/L Anion Gap 19.2 H (5-15) mmol/L BUN 8 (6-25) mg/dL Creatinine 0.82 (0.51-1.17) mg/dL Est Cr Clr Drug Dosing 78.62 mL/min Estimated GFR (MDRD) > 60 mL/min Glucose 138 H (75 - 99) mg/dL Calcium 8.4 L (8.7-10.3) mg/dL Total Bilirubin 0.6 (0.2-1.0) mg/dL AST 18 (15-37) U/L ALT 20 (12-78) U/L Alkaline Phosphatase 70 (46-116) IU/L Total Protein 7.5 (6.4-8.2) g/dL Albumin 4.23 (3.00-4.80) g/dL Urine Opiates Screen Negative (NEGATIVE) Ur Oxycodone Screen Negative (NEGATIVE) Urine Methadone Screen Negative (NEGATIVE) Ur Propoxyphene Screen Negative (NEGATIVE) Ur Barbiturates Screen Negative (NEGATIVE) Ur Tricyclics Screen Negative (NEGATIVE) Ur Phencyclidine Scrn Negative (NEGATIVE) Ur Amphetamine Screen Negative (NEGATIVE) U Methamphetamines Scrn Negative (NEGATIVE) U Benzodiazepines Scrn Positive H (NEGATIVE) U Cocaine Metab Screen Negative (NEGATIVE) U Marijuana (THC) Screen Negative (NEGATIVE) Ethyl Alcohol < 3 (NONE DETECTED) mg/dL Meds: Medications Generic Name Dose Route Start Last Admin Trade Name Freq PRN Reason Stop Dose Admin Sodium Chloride 1,000 mls @ 100 mls/hr 10/02/19 20:00 10/02/19 20:28 Normal Saline IV 100 mls/hr ASDIRECTED TRAVON Administration Sodium Chloride 10 ml 10/02/19 19:47 Saline Flush FLUSH Q8HR PRN keep vein open Discontinued Medications Generic Name Dose Route Start Last Admin Trade Name Neel PRN Reason Stop Dose Admin Folic Acid 1 mg 10/02/19 20:00 10/02/19 20:29 Folic Acid IV 10/02/19 20:01 1 mg DAILY ONE Administration Thiamine HCl 50 mg/ Sodium 100.5 mls @ 201 mls/hr 10/02/19 20:00 Chloride IV 10/02/19 20:01 ONETIME ONE Thiamine HCl 50 mg 10/02/19 19:48 10/02/19 20:22 Vitamin B-1 IM 10/02/19 19:49 50 mg ONETIME ONE Administration Departure - Departure Time of Disposition: 21:50 Disposition: Home, Self-Care 01 Condition: Fair Clinical Impression: Sedative, hypnotic or anxiolytic use, unspecified with withdrawal with perceptual disturbances, Alcohol abuse - Discharge Information *PRESCRIPTION DRUG MONITORING PROGRAM REVIEWED*: Not Applicable *COPY OF PRESCRIPTION DRUG MONITORING REPORT IN PATIENT RIGOBERTO: Not Applicable Referrals: Heidi Diop RACING SECRETARY AND HANDICAPPER [Primary Care Provider] - Forms: ED Department Discharge Additional Instructions: Will be discharged to the custody of her spouse with the recommendation to contact [facility] where she had intended to go yesterday. Advised they can contact us for record of all lab work performed tonight. There has been no activity, action, or spoken words this would place this into a nonvoluntary status. Please contact if needing assistance in the transfer records. Avoid high sugary foods and drinks, secondary of your glucose reading tonight. Sepsis Event Note - Focused Exam Vital Signs: Vital Signs Temp Pulse Resp BP Pulse Ox 10/02/19 20:02 36.6 C 102 H 18 144/89 H 100 Date Exam was Performed: 10/02/19 Time Exam was Performed: 21:22 - Problem List & Annotations (1) Alcohol abuse SNOMED Code(s): 41014119 Code(s): F10.10 - ALCOHOL ABUSE, UNCOMPLICATED Status: Suspected Priority : Medium Current Visit: Yes (2) Sedative, hypnotic or anxiolytic use, unspecified with withdrawal with perceptual disturbances SNOMED Code(s): 55449615, 592834727, 778270195 Code(s): F13.932 - SEDATV/HYP/ANXIOLYTC USE, UNSP W W/DRAWAL W PERCEPTL DISTURB Status: Chronic Priority: Medium Current Visit: Yes Annotation/ Comment:: Alcohol dependency/withdrawal symptoms. - Problem List Review Problem List Initiated/Reviewed/Updated: Yes - My Orders Last 24 Hours: My Active Orders 10/02/19 19:47 Sodium Chloride 0.9% [Saline Flush] 10 ml FLUSH Q8HR PRN 10/02/19 19:48 Peripheral IV Care [RC] . DIRECTED Peripheral IV Insertion Adult [OM.PC] Routine 10/02/19 19:52 Chest 2V [CR] Stat 10/02/19 20:00 Sodium Chloride 0.9% [Normal Saline] 1,000 ml IV ASDIRECTED - Assessment/Plan Last 24 Hours: My Active Orders 10/02/19 19:47 Sodium Chloride 0.9% [Saline Flush] 10 ml FLUSH Q8HR PRN 10/02/19 19:48 Peripheral IV Care [RC] . DIRECTED Peripheral IV Insertion Adult [OM.PC] Routine 10/02/19 19:52 Chest 2V [CR] Stat 10/02/19 20:00 Sodium Chloride 0.9% [Normal Saline] 1,000 ml IV ASDIRECTED Plan: Will be discharged to the custody of her spouse with the recommendation to contact [facility] where she had intended to go yesterday. Advised they can contact us for record of all lab work performed tonight. There has been no activity, action, or spoken words this would place this into a nonvoluntary status. Please contact if needing assistance in the transfer records. Avoid high sugary foods and drinks, secondary of your glucose reading tonight.
[2019-10-02] MEDS ORDERED: Thiamine 200 MG/2 ML MDV IM ONE (19:48)
[2019-10-02] MEDS ORDERED: Sodium Chloride 0.9% 1,000 ML IV SCH (20:00)
[2019-10-02] MEDS ORDERED: SODIUM CHLORIDE 0.9% IV ONE (20:00)
[2019-10-02] MEDS ORDERED: THIAMINE IV ONE (20:00)
[2019-10-02] MEDS ORDERED: Folic Acid 50 MG/10 ML MDV IV ONE (20:00)
[2019-10-02 20:30] LABS: BARBITURATE SCREEN,URINE NEGATIVE (NEGATIVE); BENZODIAZEPINES SCREEN,URINE POSITIVE (NEGATIVE)
[2019-10-02 20:31] LABS: TCA SCREEN,URINE NEGATIVE (NEGATIVE); THC SCREEN,URINE 50 NG/ML NEGATIVE (NEGATIVE)
[2019-10-02 20:41] LABS: ANION GAP 19.2 mmol/L (5-15); CHLORIDE,CL 100 mmol/L (98-115); SODIUM,NA 139 mmol/L (136-145)
[2019-10-02 22:05] VITALS: BP 130/72; PULSE 76
== END 2019-10-02 21:50 | disposition home or self-care (01) ==
LOC: KA.ED 19:33
DX: F13.932 Sedative, hypnotic or anxiolytic use, unspecified with withdrawal with perceptual disturbances (principal); F10.10 Alcohol abuse, uncomplicated; E66.9 Obesity, unspecified; E11.9 Type 2 diabetes mellitus without complications; Z88.0 Allergy status to penicillin; Z68.25 Body mass index [BMI] 25.0-25.9, adult
CPT/HCPCS: 36415; 80053; 80305-QW; 85025; 96361; 96365; 96372; 96375; 99285-25; G0480; J3411; J3490; J7030; J7050

== ENCOUNTER 2019-10-06 06:23 | Emergency (ER) | payer OTHER ==
--- NOTE | 2019-10-06 06:48 | EDM.PDOC ---
ED HPI GENERAL MEDICAL PROBLEM - General Chief Complaint: Trauma Stated Complaint: seizure activity Time Seen by Provider: 10/06/19 06:23 Source of Information: Reports: Patient, EMS History Limitations: Reports: Altered Mental Status - History of Present Illness INITIAL COMMENTS - FREE TEXT/NARRATIVE: Patient presents via ambulance after falling down some concrete stairs and hitting her head. Her isn't here but we called him and he says this happened about 0525 this morning, he didn't see it but he heard her fall down the stairs and went to her right away then called ambulance. He says she was drinking last night, not sure how much but says she went to bed drunk. She uses Xanax, metoprolol and albuterol. EMS tells me she gave bizarre answers to some routine questions. For me she answers 2018, , day Friday. Confused speech was obvious. At times she seemed quite normal and she did tell us she fell because she was drinking; she denies being pushed. The first couple times she was asked how she fell she didn't know. - Related Data Allergies Allergy/AdvReac Type Severity Reaction Status Date / Time amoxicillin Allergy Hives Verified 10/02/19 20:01 Home Meds: Home Meds ALPRAZolam [Xanax] 1 mg PO Q6H PRN 11/02/15 [History] Albuterol [IJD: Albuterol HFA] 2 puff INH Q4HR PRN 07/22/17 [History] Past Medical History Respiratory History: Reports: Asthma Gastrointestinal History: Reports: Cholelithiasis Other Gastrointestinal History: recent bariatric procedure November 2016, bowel obstruction in december 2016 Genitourinary History: Reports: Renal Calculus, Other (See Below) Other Genitourinary History: bacterial vaginosis DATABASE REPORTING CONSULTANT History: Reports: Other (See Below) Other DATABASE REPORTING CONSULTANT History: 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 Musculoskeletal History: Reports: None Psychiatric History: Reports: Anxiety Endocrine/Metabolic History: Reports: Diabetes, Type II, Obesity/BMI 30+ ( [place] bypass) Hematologic History: Reports: None - Infectious Disease History Infectious Disease History: Reports: Chicken Pox - Past Surgical History Head Surgeries/Procedures: Reports: None HEENT Surgical History: Reports: Tonsillectomy Cardiovascular Surgical History: Reports: None Respiratory Surgical History: Reports: None GI Surgical History: Reports: Bariatric Procedure, Cholecystectomy, Colonoscopy Female Surgical History: Reports: Section, Hysterectomy (August 2019) Social & Family History - Family History Family Medical History: Noncontributory Cardiac: Reports: Hypertension, Other (See Below) Other Cardiac Family History: Dad from cardiac arrest at age 61 Psychiatric: Reports: Anxiety, Other (See Below) (alcoholism) Endocrine/Metabolic: Reports: Diabetes, type II - Caffeine Use Caffeine Use: Reports: None Review of Systems - Review of Systems Review Of Systems: See Below (somewhat limited by confusion) Constitutional: Denies: Fever, Weakness Eyes: Denies: Vision Change Ears: Denies: Bloody Discharge, Clear Discharge Mouth/Throat: Denies: Bleeding, Throat Swelling Respiratory: Denies: Shortness of Breath, Cough Cardiovascular: Denies: Chest Pain GI/Abdominal: Denies: Abdominal Pain, Vomiting Genitourinary: Denies: Incontinence Musculoskeletal: Denies: Neck Pain, Shoulder Pain, Arm Pain, Back Pain, Hand Pain, Leg Pain, Foot Pain Skin: Denies: Cyanosis, Jaundice, Mottled, Pallor, Diaphoresis Neurological: Reports: Confusion, Tremors (small, jerky tremors of extremities and head observed). Denies: Dizziness, Trouble Speaking, Weakness Psychiatric: Reports: Confusion, Anxiety ED EXAM, GENERAL - Physical Exam Exam: See Below Exam Limited By: Altered Mental Status General Appearance: Alert, WD/WN Eye Exam: Left Eye: Abnormal Pupil (left 6 mm, right 5 mm), Bilateral Eye: EOMI Ears: Normal External Exam, Hearing Grossly Normal Nose: Other (abrasion on bridge of nose). No: Nasal Deformity, Nasal Swelling, Nasal Drainage, Clear Rhinorrhea Throat/Mouth: Normal Inspection, Normal Lips, Normal Voice, No Airway Compromise Head: Other (abrasion at upper forehead; large frontal hematoma; ecchymosis at left moravian) Neck: Normal Inspection, Supple, Non-Tender, Full Range of Motion (she was moving it freely prior to applying C-collar in ER) Respiratory/Chest: No Respiratory Distress, Lungs Clear, Normal Breath Sounds, No Accessory Muscle Use Cardiovascular: No Murmur, Tachycardia (regular), Other (adequate perfusion is evident) GI/Abdominal: Normal Bowel Sounds, Soft, Non-Tender, No Organomegaly, No Distention, No Abnormal Bruit, No Mass, Pelvis Stable Back Exam: Normal Inspection, Full Range of Motion. No: CVA Tenderness (L), CVA Tenderness (R), Paraspinal Tenderness, Vertebral Tenderness Extremities: Normal Range of Motion, Non-Tender, No Pedal Edema, Normal Capillary Refill, Other (no assymetry or weakness; there are a couple abrasions and ecchymoses on lower extremities) Neurological: Alert, CN II-XII Intact, No Motor/Sensory Deficits, Confused ( knows her name and president Rashaad but not day, month or year), Disoriented Psychiatric: Normal Affect, Normal Mood, Anxious Skin Exam: Warm, Dry, Intact, Normal Color, No Rash Course - Orders/Labs/Meds Labs: Laboratory Tests 10/06/19 10/06/19 10/06/19 Range/Units 06:35 06:35 06:36 WBC 15.08 H (5.00-10.00) 10^3/uL RBC 4.23 (3.80-5.50) 10^6/uL Hgb 11.6 L (12.0-16.0) g/dL Hct 35.8 L (37.0-47.0) % MCV 84.6 (82.0-92.0) fL MCH 27.4 (27.0-31.0) pg MCHC 32.4 (32.0-36.0) g/dL RDW 14.6 H (11.5-14.5) % Plt Count 307 (150-400) 10^3/uL MPV 9.4 (7.4-10.4) fL Immature Gran % (Auto) 0.3 (0.0-5.0) % Neut % (Auto) 88.4 H (50.0-70.0) % Lymph % (Auto) 8.1 L (20.0-40.0) % Wagoner % (Auto) 2.9 (2.0-8.0) % Eos % (Auto) 0.0 L (1.0-3.0) % Baso % (Auto) 0.3 (0.0-1.0) % Immature Gran # (Auto) 0.04 (0.00-0.50) 10^3/uL Neut # (Auto) 13.35 H (2.50-7.00) 10^3/uL Lymph # (Auto) 1.22 (1.00-4.00) 10^3/uL Wagoner # (Auto) 0.43 (0.10-0.80) 10^3/uL Eos # (Auto) 0.00 L (0.10-0.30) 10^3/uL Baso # (Auto) 0.04 (0.00-0.10) 10^3/uL Sodium 136 (136-145) mmol/L Potassium 3.9 (3.3-5.3) mmol/L Chloride 100 (98-115) mmol/L Carbon Dioxide 19.5 L (21.0-32.0) mmol/L Anion Gap 20.4 H (5-15) mmol/L BUN 10 (6-25) mg/dL Creatinine 1.00 (0.51-1.17) mg/dL Est Cr Clr Drug Dosing TNP Estimated GFR (MDRD) > 60 mL/min Glucose 193 H (75 - 99) mg/dL POC Glucose 191 H (74-106) mg/dl Calcium 9.0 (8.7-10.3) mg/dL Total Bilirubin 0.9 (0.2-1.0) mg/dL AST 20 (15-37) U/L ALT 19 (12-78) U/L Alkaline Phosphatase 65 (46-116) IU/L Total Protein 7.9 (6.4-8.2) g/dL Albumin 4.71 (3.00-4.80) g/dL Specimen Type Urine Color (YELLOW) Urine Appearance (CLEAR) Urine pH (5.0-9.0) Ur Specific Jenners (1.005-1.030) Urine Protein (NEGATIVE) mg/dL Urine Glucose (UA) (NEGATIVE) mg/dL Urine Ketones (NEGATIVE) mg/dL Urine Occult Blood (NEGATIVE) Urine Nitrite (NEGATIVE) Urine Bilirubin (NEGATIVE) Urine Urobilinogen (0.2-1.0) E.U./dL Ur Leukocyte Esterase (NEGATIVE) Urine RBC (0-5) /HPF Urine WBC (0-5) /HPF Ur Epithelial Cells /LPF Urine Bacteria (NONE TO FEW) /HPF Urine Opiates Screen (NEGATIVE) Ur Oxycodone Screen (NEGATIVE) Urine Methadone Screen (NEGATIVE) Ur Propoxyphene Screen (NEGATIVE) Ur Barbiturates Screen (NEGATIVE) Ur Tricyclics Screen (NEGATIVE) Ur Phencyclidine Scrn (NEGATIVE) Ur Amphetamine Screen (NEGATIVE) U Methamphetamines Scrn (NEGATIVE) U Benzodiazepines Scrn (NEGATIVE) U Cocaine Metab Screen (NEGATIVE) U Marijuana (THC) Screen (NEGATIVE) Ethyl Alcohol 4 H (NONE DETECTED) mg/dL 10/06/19 10/06/19 Range/Units 07:25 07:25 WBC (5.00-10.00) 10^3/uL RBC (3.80-5.50) 10^6/uL Hgb (12.0-16.0) g/dL Hct (37.0-47.0) % MCV (82.0-92.0) fL MCH (27.0-31.0) pg MCHC (32.0-36.0) g/dL RDW (11.5-14.5) % Plt Count (150-400) 10^3/uL MPV (7.4-10.4) fL Immature Gran % (Auto) (0.0-5.0) % Neut % (Auto) (50.0-70.0) % Lymph % (Auto) (20.0-40.0) % Wagoner % (Auto) (2.0-8.0) % Eos % (Auto) (1.0-3.0) % Baso % (Auto) (0.0-1.0) % Immature Gran # (Auto) (0.00-0.50) 10^3/uL Neut # (Auto) (2.50-7.00) 10^3/uL Lymph # (Auto) (1.00-4.00) 10^3/uL Wagoner # (Auto) (0.10-0.80) 10^3/uL Eos # (Auto) (0.10-0.30) 10^3/uL Baso # (Auto) (0.00-0.10) 10^3/uL Sodium (136-145) mmol/L Potassium (3.3-5.3) mmol/L Chloride (98-115) mmol/L Carbon Dioxide (21.0-32.0) mmol/L Anion Gap (5-15) mmol/L BUN (6-25) mg/dL Creatinine (0.51-1.17) mg/dL Est Cr Clr Drug Dosing Estimated GFR (MDRD) mL/min Glucose (75 - 99) mg/dL POC Glucose (74-106) mg/dl Calcium (8.7-10.3) mg/dL Total Bilirubin (0.2-1.0) mg/dL AST (15-37) U/L ALT (12-78) U/L Alkaline Phosphatase (46-116) IU/L Total Protein (6.4-8.2) g/dL Albumin (3.00-4.80) g/dL Specimen Type Urincc Urine Color Light yellow (YELLOW) Urine Appearance Clear (CLEAR) Urine pH 5.5 (5.0-9.0) Ur Specific Jenners 1.015 (1.005-1.030) Urine Protein Negative (NEGATIVE) mg/dL Urine Glucose (UA) Negative (NEGATIVE) mg/dL Urine Ketones Trace H (NEGATIVE) mg/dL Urine Occult Blood Negative (NEGATIVE) Urine Nitrite Negative (NEGATIVE) Urine Bilirubin Negative (NEGATIVE) Urine Urobilinogen 0.2 (0.2-1.0) E.U./dL Ur Leukocyte Esterase Negative (NEGATIVE) Urine RBC 0-5 (0-5) /HPF Urine WBC 0-5 (0-5) /HPF Ur Epithelial Cells Moderate H /LPF Urine Bacteria Not seen (NONE TO FEW) /HPF Urine Opiates Screen Negative (NEGATIVE) Ur Oxycodone Screen Negative (NEGATIVE) Urine Methadone Screen Negative (NEGATIVE) Ur Propoxyphene Screen Negative (NEGATIVE) Ur Barbiturates Screen Negative (NEGATIVE) Ur Tricyclics Screen Negative (NEGATIVE) Ur Phencyclidine Scrn Negative (NEGATIVE) Ur Amphetamine Screen Negative (NEGATIVE) U Methamphetamines Scrn Negative (NEGATIVE) U Benzodiazepines Scrn Negative (NEGATIVE) U Cocaine Metab Screen Negative (NEGATIVE) U Marijuana (THC) Screen Negative (NEGATIVE) Ethyl Alcohol (NONE DETECTED) mg/dL - Re-Assessments/Exams Free Text/Narrative Re-Assessment/Exam: 10/06/19 07:47 [facility] was requested and transfer initiated within 5-7 minutes of arrival as it quickly became obvious there was confusion and likely significant head injury. I discussed case early with Dr. Vinita WILKINS at [facility] who accepted for transfer and [facility] ordered flight. Confused speech alternating with seemingly normal speech was obvious throughout ER course. ETOH is 4 (.004). Head and neck CTs were performed while awaiting flight and show frontal hematoma but nothing more severe. There is no history of seizures but apparently fairly extensive alcohol use; and DWI and ER visit for alcohol withdrawal within the last week. Also failure to go to an arranged alcohol treatment facility last weekend. Patient remained confused but otherwise stable and was discharged via [facility] in stable condition. Departure - Departure Time of Disposition: 07:44 Disposition: DC/Tfer to Acute Hospital 02 Condition: Good Clinical Impression: Confusion with non-focal neuro exam, Pupil diameter unequal Head trauma Qualifiers: Encounter type: initial encounter Qualified Code(s): S09.90XA - Unspecified injury of head, initial encounter Hematoma of frontal scalp Qualifiers: Encounter type: initial encounter Qualified Code(s): S00.03XA - Contusion of scalp, initial encounter Traumatic ecchymosis of face Qualifiers: Encounter type: initial encounter Qualified Code(s): S00.83XA - Contusion of other part of head, initial encounter - Discharge Information Forms: ED Department Discharge Sepsis Event Note - Focused Exam Date Exam was Performed: 10/06/19 Time Exam was Performed: 08:06
[2019-10-06 07:06] LABS: ANION GAP 20.4 mmol/L (5-15); CHLORIDE,CL 100 mmol/L (98-115); SODIUM,NA 136 mmol/L (136-145)
[2019-10-06 07:43] LABS: BARBITURATE SCREEN,URINE NEGATIVE (NEGATIVE); BENZODIAZEPINES SCREEN,URINE NEGATIVE (NEGATIVE); TCA SCREEN,URINE NEGATIVE (NEGATIVE); THC SCREEN,URINE 50 NG/ML NEGATIVE (NEGATIVE)
--- NOTE | 2019-10-06 07:44 | CT ---
[id number] CT/CT Head WO IV EXAM: CT Head WO IV CLINICAL DATA: HEAD TRAUMA. COMPARISON STUDY: None FINDINGS: Right frontal scalp hematoma. No underlying acute calvarial fracture. No acute intracranial hemorrhage or extra-axial fluid collection. Soft tissue contusion overlying the lateral aspect of the left orbit as well. Orbit is intact. Paranasal sinuses and mastoid air cells are clear. IMPRESSION: Soft tissue contusion/hematoma in the right frontal and left orbital regions. No underlying calvarial/facial bone fracture or acute intracranial hemorrhage. Jeffery Baker MD 10/06/19 0743 Thank you for allowing us to participate in the care of your patient.
--- NOTE | 2019-10-06 07:46 | CT ---
[id number] CT/CT Cervical Spine WO IV EXAM: CT Cervical Spine WO IV INDICATION: HEAD TRAUMA. COMPARISON: None. DISCUSSION: No fracture or compression deformity. Vertebral bodies remain in normal alignment. Scattered changes of spondylosis throughout the cervical spine. No prevertebral soft tissue edema. Debris within the esophagus. Nonspecific in etiology. Correlate for aspiration. Lung apices are clear. IMPRESSION: No acute findings in the cervical spine. Jeffery Baker MD 10/06/19 0745 Thank you for allowing us to participate in the care of your patient.
== END 2019-10-06 07:35 ==
LOC: SUPCPDRO 06:23 → KA.ED 06:23
DX: R41.0 Disorientation, unspecified (principal); S00.03XA Contusion of scalp, initial encounter; S00.83XA Contusion of other part of head, initial encounter; S09.90XA Unspecified injury of head, initial encounter; E11.9 Type 2 diabetes mellitus without complications; F41.9 Anxiety disorder, unspecified; H57.02 Anisocoria; W10.9XXA Fall (on) (from) unspecified stairs and steps, initial encounter
CPT/HCPCS: 36415; 70450; 72125; 80053; 80305-QW; 81001; 82962; 85025; 99285-25; G0480; Q3014

== ENCOUNTER 2020-06-20 05:44 | Emergency (ER) | payer BC, OTHER ==
--- NOTE | 2020-06-20 06:10 | EDM.PDOC ---
ED HPI GENERAL MEDICAL PROBLEM - General Chief Complaint: General Time Seen by Provider: 06/20/20 06:10 Source of Information: Reports: Patient History Limitations: Reports: No Limitations - History of Present Illness INITIAL COMMENTS - FREE TEXT/NARRATIVE: dAy Ribeiro, 34-year-old female, diagnosed over 2 weeks ago with COVID-19 has an increase in her symptoms the past 2 days. She has been experiencing generalized body pains, fatigue, low-grade fever, nausea with limited oral intake, loose stools with abdominal discomfort. Her cough is been intermittent nonproductive with increasing general malaise and overall body symptoms. She had been previously told by public health that she would be off quarantine this past Friday but has remained under quarantine secondary of her symptoms increasing despite being cleared by health department. Duration: Day(s): Location: Reports: Head, Chest, Generalized Quality: Reports: Burning, Pressure, Sharp Severity: Moderate Improves with: Reports: None Worsens with: Reports: Breathing, Movement Context: Reports: Sick Contact Associated Symptoms: Reports: Cough, Fever/Chills, Headaches, Loss of Appetite, Nausea/Vomiting, Shortness of Breath, Weakness Right Abdomen Pain Score (Numeric/FACES): 5 - Related Data Allergies Allergy/AdvReac Type Severity Reaction Status Date / Time amitriptyline Allergy Hives Verified 06/20/20 05:45 amoxicillin Allergy Hives Verified 06/20/20 05:45 Home Meds: Home Meds ALPRAZolam [Xanax] 1 mg PO Q6H PRN 11/02/15 [History] Fluconazole [Diflucan] 150 mg PO ONETIME 3 Days #2 tab 06/20/20 [Rx] Levofloxacin [Levaquin] 500 mg PO DAILY 7 Days #7 tablet 06/20/20 [Rx] Metoprolol Succinate [Toprol XL 50mg] 50 mg PO BID 06/20/20 [History] busPIRone [Buspar] 5 mg PO BID 06/20/20 [History] Past Medical History Respiratory History: Reports: Asthma Gastrointestinal History: Reports: Cholelithiasis Other Gastrointestinal History: recent bariatric procedure November 2016, bowel obstruction in december 2016 Genitourinary History: Reports: Renal Calculus, Other (See Below) Other Genitourinary History: bacterial vaginosis [employer] History: Reports: Other (See Below) Other [employer] History: 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 Musculoskeletal History: Reports: None Psychiatric History: Reports: Anxiety Endocrine/Metabolic History: Reports: Diabetes, Type II, Obesity/BMI 30+ Hematologic History: Reports: None - Infectious Disease History Infectious Disease History: Reports: Chicken Pox, Other (See Below) (COVID May 2020) - Past Surgical History Head Surgeries/Procedures: Reports: None HEENT Surgical History: Reports: Tonsillectomy Cardiovascular Surgical History: Reports: None Respiratory Surgical History: Reports: None GI Surgical History: Reports: Bariatric Procedure, Cholecystectomy, Colonoscopy Female Surgical History: Reports: Section, Hysterectomy - Past Imaging History Past Imaging History: Reports: Ultrasound, Xray Social & Family History - Family History Family Medical History: Noncontributory Cardiac: Reports: Hypertension, Other (See Below) Other Cardiac Family History: Dad from cardiac arrest at age 61 Psychiatric: Reports: Anxiety, Other (See Below) Endocrine/Metabolic: Reports: Diabetes, type II - Caffeine Use Caffeine Use: Reports: None - Alcohol Use Alcohol Use History: Yes Alcohol Use Frequency: Binges ED ROS GENERAL - Review of Systems Review Of Systems: Comprehensive ROS is negative, except as noted in HPI. ED EXAM, GENERAL - Physical Exam Exam: See Below Free Text/Narrative:: Alert oriented in mild painful distress with cough. Converses freely with no exhibited shortness of breath. HEENT is negative discharge or deformity and mild erythema in the oropharynx. No involvement of the auditory canals or tympanic membranes Neck is soft supple mild tenderness to palpation no lymphadenopathy. Thorax clear fine rhonchi scattered to the bases bilateral with no wheezes nor crackles. Cardiac is S1-S2 no appreciated murmur. Abdomen is uncomfortable with bowel sounds noted there is no point tenderness no rebound tenderness. No pressure over the urinary bladder. No flank pain Pulses correlate with apical heart rate. Moves extremities about with some discomfort to the musculature. No rashes noted. Scattered tattoos to the extremities back chest EKG INTERPRETATION EKG Date: 06/20/20 Time: 06:06 Rhythm: NSR [place] Path: Normal P-Wave: Present QRS: Normal ST-T: Normal QT: Normal Comparison: NA - No Prior EKG Course - Vital Signs Last Recorded V/S: Last Vital Signs Temp 36.9 C 06/20/20 07:34 Pulse 84 06/20/20 07:34 Resp 16 06/20/20 07:34 BP 116/85 06/20/20 07:34 Pulse Ox 99 06/20/20 07:34 - Orders/Labs/Meds Orders: Active Orders 24 hr Category Date Time Status CULTURE URINE [RM] Stat Lab 06/20/20 07:48 Received Labs: Laboratory Tests 06/20/20 06/20/20 06/20/20 Range/Units 06:10 06:10 06:10 WBC 6.48 (5.00-10.00) 10^3/uL RBC 4.78 (3.80-5.50) 10^6/uL Hgb 12.2 (12.0-16.0) g/dL Hct 38.8 (37.0-47.0) % MCV 81.2 L D (82.0-92.0) fL MCH 25.5 L (27.0-31.0) pg MCHC 31.4 L (32.0-36.0) g/dL RDW 18.4 H (11.5-14.5) % Plt Count 240 (150-400) 10^3/uL MPV 9.2 (7.4-10.4) fL Add Manual Diff Yes Neutrophils % (Manual) 91 H (50-70) % Lymphocytes % (Manual) 4 L (20-40) % Monocytes % (Manual) 5 (2-8) % Absolute Neutrophils 5.8968 Lymphocytes # (Manual) 0.2592 Monocytes # (Manual) 0.3240 D-Dimer, Quantitative 376 (<400) ng/mL Sodium 139 (136-145) mmol/L Potassium 3.5 (3.3-5.3) mmol/L Chloride 97 L (98-115) mmol/L Carbon Dioxide 25.3 (21.0-32.0) mmol/L Anion Gap 20.2 H (5-15) mmol/L BUN 10 (6-25) mg/dL Creatinine 0.75 (0.51-1.17) mg/dL Est Cr Clr Drug Dosing 85.17 mL/min Estimated GFR (MDRD) > 60 mL/min Glucose 251 H (75 - 99) mg/dL Lactic Acid (0.4-2.0) mmol/L Calcium 8.1 L (8.7-10.3) mg/dL Total Bilirubin 2.3 H (0.2-1.0) mg/dL AST 676 H (15-37) U/L ALT 153 H (12-78) U/L Alkaline Phosphatase 99 (46-116) IU/L Creatine Kinase 58 (26-276) U/L CK-MB (CK-2) 0.50 (0.00-4.30) ng/mL Troponin I 0.07 (0.00-0.070) ng/mL Total Protein 7.1 (6.4-8.2) g/dL Albumin 3.47 (3.00-4.80) g/dL Amylase (25-125) U/L Lipase (73-393) U/L Specimen Type Urine Color (YELLOW) Urine Appearance (CLEAR) Urine pH (5.0-9.0) Ur Specific Liberal (1.005-1.030) Urine Protein (NEGATIVE) mg/dL Urine Glucose (UA) (NEGATIVE) mg/dL Urine Ketones (NEGATIVE) mg/dL Urine Occult Blood (NEGATIVE) Urine Nitrite (NEGATIVE) Urine Bilirubin (NEGATIVE) Urine Urobilinogen (0.2-1.0) E.U./dL Ur Leukocyte Esterase (NEGATIVE) Urine RBC (0-5) /HPF Urine WBC (0-5) /HPF Ur Epithelial Cells /LPF Urine Bacteria (NONE TO FEW) /HPF 06/20/20 06/20/20 06/20/20 Range/Units 06:10 06:10 07:48 WBC (5.00-10.00) 10^3/uL RBC (3.80-5.50) 10^6/uL Hgb (12.0-16.0) g/dL Hct (37.0-47.0) % MCV (82.0-92.0) fL MCH (27.0-31.0) pg MCHC (32.0-36.0) g/dL RDW (11.5-14.5) % Plt Count (150-400) 10^3/uL MPV (7.4-10.4) fL Add Manual Diff Neutrophils % (Manual) (50-70) % Lymphocytes % (Manual) (20-40) % Monocytes % (Manual) (2-8) % Absolute Neutrophils Lymphocytes # (Manual) Monocytes # (Manual) D-Dimer, Quantitative (<400) ng/mL Sodium (136-145) mmol/L Potassium (3.3-5.3) mmol/L Chloride (98-115) mmol/L Carbon Dioxide (21.0-32.0) mmol/L Anion Gap (5-15) mmol/L BUN (6-25) mg/dL Creatinine (0.51-1.17) mg/dL Est Cr Clr Drug Dosing mL/min Estimated GFR (MDRD) mL/min Glucose (75 - 99) mg/dL Lactic Acid 3.8 H (0.4-2.0) mmol/L Calcium (8.7-10.3) mg/dL Total Bilirubin (0.2-1.0) mg/dL AST (15-37) U/L ALT (12-78) U/L Alkaline Phosphatase (46-116) IU/L Creatine Kinase (26-276) U/L CK-MB (CK-2) (0.00-4.30) ng/mL Troponin I (0.00-0.070) ng/mL Total Protein (6.4-8.2) g/dL Albumin (3.00-4.80) g/dL Amylase 60 (25-125) U/L Lipase 173 (73-393) U/L Specimen Type Urincc Urine Color Yellow (YELLOW) Urine Appearance Slightly cloudy H (CLEAR) Urine pH 5.5 (5.0-9.0) Ur Specific Liberal 1.025 (1.005-1.030) Urine Protein Negative (NEGATIVE) mg/dL Urine Glucose (UA) Negative (NEGATIVE) mg/dL Urine Ketones Negative (NEGATIVE) mg/dL Urine Occult Blood Negative (NEGATIVE) Urine Nitrite Positive H (NEGATIVE) Urine Bilirubin Small H (NEGATIVE) Urine Urobilinogen 1.0 (0.2-1.0) E.U./dL Ur Leukocyte Esterase Negative (NEGATIVE) Urine RBC 0-5 (0-5) /HPF Urine WBC 0-5 (0-5) /HPF Ur Epithelial Cells Few /LPF Urine Bacteria Moderate H (NONE TO FEW) /HPF Meds: Medications Discontinued Medications Generic Name Dose Route Start Last Admin Trade Name Freq PRN Reason Stop Dose Admin Sodium Chloride 1,000 mls @ 999 mls/hr 06/20/20 05:59 06/20/20 06:42 Normal Saline IV 06/20/20 06:59 999 mls/hr .BOLUS ONE Administration Sodium Chloride 1,000 mls @ 999 mls/hr 06/20/20 07:41 06/20/20 07:48 Normal Saline IV 06/20/20 08:41 999 mls/hr .BOLUS ONE Administration Ketorolac Tromethamine 30 mg 06/20/20 06:32 06/20/20 06:47 Toradol IVPUSH 06/20/20 06:33 30 mg ONETIME ONE Administration Ondansetron HCl 4 mg 06/20/20 06:24 06/20/20 06:42 Zofran IVPUSH 06/20/20 06:25 4 mg ONETIME ONE Administration - Re-Assessments/Exams Free Text/Narrative Re-Assessment/Exam: 06/20/20 07:42 States feeling slightly better nausea is resolved. States likely elevation and liver enzymes secondary of her binge drinking the past week as she knows she is approaching cessation and treatment this coming week. Departure - Departure Time of Disposition: 08:44 Disposition: Home, Self-Care 01 Condition: Good Clinical Impression: COVID-19, UTI (urinary tract infection) - Discharge Information *PRESCRIPTION DRUG MONITORING PROGRAM REVIEWED*: Not Applicable *COPY OF PRESCRIPTION DRUG MONITORING REPORT IN PATIENT RIGOBERTO: Not Applicable Prescriptions: Fluconazole [Diflucan] 150 mg PO ONETIME 3 Days #2 tab Levofloxacin [Levaquin] 500 mg PO DAILY 7 Days #7 tablet Forms: ED Department Discharge Additional Instructions: Your chest x-ray, and CBC show no correlation for pneumonia. Your symptoms are likely the ongoing process of the COVID-19 diagnosis. You do have a UTI which we will treat with Levaquin 1 tablet daily for the next 7 days and will provide Diflucan to be used for your history of yeast infection. You do need to follow-up in your clinic this week to have reevaluation of your liver enzymes and lactic acid. These are likely elevated secondary of your binge drinking, but need to be reevaluated to assure that they are back down in a normal range. Make sure that she continue your good hydration and eat as tolerated. Your quarantine must continue until you are symptom-free for 72 hours without the use of any medication, antipyretics and such. Sepsis Event Note (ED) - Evaluation Sepsis Screening Result: No Definite Risk - Focused Exam Vital Signs: Vital Signs Temp Pulse Resp BP Pulse Ox 06/20/20 07:34 36.9 C 84 16 116/85 99 06/20/20 05:46 36.3 C 109 H 16 142/88 H 98 - Problem List & Annotations (1) COVID-19 SNOMED Code(s): 729551161 Code(s): U07.1 - COVID-19 Status: Acute (2) Elevated liver enzymes SNOMED Code(s): 665504048 Code(s): R74.8 - ABNORMAL LEVELS OF OTHER SERUM ENZYMES Status: Acute (3) Cough in adult patient SNOMED Code(s): 74855836 Code(s): R05 - COUGH Status: Acute (4) UTI (urinary tract infection) SNOMED Code(s): 40775831 Code(s): N39.0 - URINARY TRACT INFECTION, SITE NOT SPECIFIED Status: Acute Qualifiers: Urinary tract infection type: acute cystitis Hematuria presence: with hematuria Qualified Code(s): N30.01 - Acute cystitis with hematuria - Problem List Review Problem List Initiated/Reviewed/Updated: Yes - My Orders Last 24 Hours: My Active Orders 06/20/20 07:48 CULTURE URINE [RM] Stat - Assessment/Plan Last 24 Hours: My Active Orders 06/20/20 07:48 CULTURE URINE [RM] Stat Plan: Your chest x-ray, and CBC show no correlation for pneumonia. Your symptoms are likely the ongoing process of the COVID-19 diagnosis. You do have a UTI which we will treat with Levaquin 1 tablet daily for the next 7 days and will provide Diflucan to be used for your history of yeast infection. You do need to follow-up in your clinic this week to have reevaluation of your liver enzymes and lactic acid. These are likely elevated secondary of your binge drinking, but need to be reevaluated to assure that they are back down in a normal range. Make sure that she continue your good hydration and eat as tolerated.
[2020-06-20] MEDS: Sodium Chloride 0.9% 1,000 ML IV ONE ×2 (06:42→07:48)
[2020-06-20] MEDS: Ondansetron 4 MG/2 ML SDV IVPUSH ONE (06:42)
[2020-06-20] MEDS: Ketorolac 30 MG/ML SDV IVPUSH ONE (06:47)
[2020-06-20 06:53] LABS: ANION GAP 20.2 mmol/L (5-15); CHLORIDE,CL 97 mmol/L (98-115); SODIUM,NA 139 mmol/L (136-145)
[2020-06-20 07:35] VITALS: BP 116/85; PULSE 84
--- NOTE | 2020-06-20 07:50 | CR ---
[id number] RAD/RAD Chest PA or AP 1V EXAM: RAD Chest PA or AP 1V INDICATION: CHEST PAIN. COMPARISON: May 2019. DISCUSSION: Cardiomediastinal silhouette is normal in size and contour. No infiltrate, effusion, pneumothorax, or edema. IMPRESSION: Negative examination of the chest. Jeffery Baker MD 06/20/20 0750 Thank you for allowing us to participate in the care of your patient.
== END 2020-06-20 08:53 | disposition home or self-care (01) ==
LOC: KA.ED 05:44
DX: U07.1 COVID-19 (principal); N39.0 Urinary tract infection, site not specified; F41.9 Anxiety disorder, unspecified; E11.9 Type 2 diabetes mellitus without complications; E66.9 Obesity, unspecified; J45.909 Unspecified asthma, uncomplicated; Z90.49 Acquired absence of other specified parts of digestive tract; Z88.0 Allergy status to penicillin; Z88.1 Allergy status to other antibiotic agents; Z79.899 Other long term (current) drug therapy; Z68.23 Body mass index [BMI] 23.0-23.9, adult
CPT/HCPCS: 36415; 71045; 80053; 81001; 82150; 82550; 82553; 83605; 83690; 84484; 85025; 85379; 87086; 93005; 96361; 96374; 96375; 99283-25; 99284; J1885; J2405; J7030